=== PATIENT | female | born 1950 | race Caucasian/White ===

== ENCOUNTER 2017-04-18 22:01 | Emergency (ER) | payer MEDICAID ==
[~2017-04-18] VITALS: Ht 162.6 cm; Wt 59.0 kg
[2017-04-19] MEDS ORDERED: TETANUS, DIPHTHERIA, PERTUSSIS VAC/PF 0.5ML (>7YR OLD) IM ONE (00:45)
[2017-04-19] MEDS ORDERED: ACETAMINOPHEN 325MG TABLET PO ONE (00:45)
[2017-04-19] MEDS ORDERED: LIDOCAINE HCL 1% 20ML VIAL (Pyxis) INJ INFIL NR (00:45)
[2017-04-19] MEDS ORDERED: BACITRACIN ZINC OINT UDPKT TOP ONE (02:00)
[2017-04-19 02:30] VITALS: BP 151/84
== END 2017-04-19 03:14 | disposition home or self-care (01) ==
LOC: ER 22:48
DX: S61.412A Laceration without foreign body of left hand, initial encounter (principal); I10 Essential (primary) hypertension; E11.9 Type 2 diabetes mellitus without complications; W45.8XXA Other foreign body or object entering through skin, initial encounter; Y93.89 Activity, other specified; Y92.89 Other specified places as the place of occurrence of the external cause; Y99.8 Other external cause status
CPT/HCPCS: 12002; 90471; 90715; 99283; J3490